=== PATIENT | female | born 2000 | race Hispanic/Latino ===

== ENCOUNTER 2024-10-16 14:47 | Emergency (ER) | payer OTHER ==
[~2024-10-16] VITALS: Ht 162.6 cm; Wt 80.1 kg
[2024-10-16 15:17] LABS: BASOPHILS # (AUTO) 0.02 K/uL (0.00-0.20); BASOPHILS % (AUTO) 0.2 % (0.0-5.0); EOSINOPHILS # (AUTO) 0.07 K/uL (0.00-0.70); EOSINOPHILS % (AUTO) 0.5 % (0.0-8.0); HEMATOCRIT 27.4 % (36-48); IMMATURE GRANULOCYTE ABSOLUTE 0.17 K/uL (0-1); MEAN CORPUSCULAR HEMOGLOBIN 29.9 pg (27.0-33.0); MEAN CORPUSCULAR HGB CONC 33.6 g/dL (32.0-36.0); MONOCYTES # (AUTO) 0.4 K/uL (0.1-1.0); MONOCYTES % (AUTO) 2.9 % (3.0-13.0); NEUTROPHILS # (AUTO) 10.5 K/uL (1.8-7.7); NEUTROPHILS % (AUTO) 80.1 % (40.0-77.0); PLATELET COUNT (AUTO) 359 K/uL (130-400); RED BLOOD CELL COUNT(AUTO) 3.08 MIL/uL (4.00-5.50); RED CELL DISTRIBUTION WIDTH 13.1 % (11.0-15.5); WHITE BLOOD COUNT (AUTO) 13.1 K/uL (4.8-10.8)
--- NOTE | 2024-10-16 15:23 | ERN ---
ED Note History of Present Illness Stated Complaint: [id number] Chief Complaint: Hypertension Time Seen by MD: 14:50 Dictation: 23-year-old female 1, 0, 0. She is 21 weeks . Patient came to the ER due to headache, leg swelling, elevated blood pressure, patient said that she started noticing today that her leg was swollen while she was doing grocery, she went to [facility] pharmacy and checked her blood pressure in the systolic was in the 140s. She also has been noticing headaches throughout the day. She has been followed by [facility] for her . Allergies: Coded Allergies: No Known Drug Allergies (Unverified Allergy, Unknown, 10/16/24) Home Meds Active Scripts Cephalexin Monohydrate (Keflex) 500 Mg Cap, 1 CAP PO TID for 5 Days, #15 CAP 0 Refills Prov:KHUSHBOO GRAFF MD 10/16/24 Past Medical History Past Medical History: No Pertinent History Surgical History: None : 1 Para: 0 Aborts: 0 Review of System Dictation NEGATIVE EXCEPT PER HPI Constitutional: Negative for fever,chills, and weight loss Eyes: Negative for injury, pain,redness, and discharge ENT: Negative for injury,pain or swelling Cardiovascular: denies chest pain, palpitations, she reports bilateral lower extremity edema Respiratory: Negative for shortness of breath, cough, and wheezing, Abdomen/GI: Negative for abdominal pain, nausea, vomiting, diarrhea, and constipation Back: Negative for injury and pain : Negative for injury, bleeding and discharge MS/Extremity: Negative for injury and deformity Skin: Negative for rash, and discoloration Neuro: Headache. Psych: Negative for suicide ideation, homicidal ideation, and hallucinations Initial Vital Sign VS Vital Signs Date Time Temp Pulse Resp B/P (MAP) Pulse Ox O2 Delivery O2 Flow Rate FiO2 10/16/24 14:50 98.8 107 18 143/76 97 Room Air 0 10/16/24 14:54 21 Physical Exam Dictation General: awake, alert, NAD Head/Face: Normocephalic, atraumatic Eyes: PERRL, EOMI, vision at baseline ENT: oral cavity clear, TMs clear, no signs of infection Neck: Trachea midline, supple, no nuchal rigidity Cardiovascular: RRR, normal S1/S2, No MRGs, no JVD, bilateral lower extremity edema Respiratory: CTAB, no respiratory distress, No rales or wheezes Abdomen: Soft , no tender Skin: Warm, dry, normal turgor, no rash MS/Extremity: Pulses equal, no cyanosis, neurovascular intact, FROM Neuro: COAx4, GCS 15, strength 5/5, CN 2-12 intact, normal cerebellar exam, normal gait, Psych: Normal behavior, mood, and affect normal Results (Laboratory/Radiology) Laboratory/Radiology Laboratory Tests Test 10/16/24 15:04 10/16/24 16:01 White Blood Count 13.1 K/uL (4.8-10.8) H Red Blood Count 3.08 MIL/uL (4.00-5.50) L Hemoglobin 9.2 g/dL (12.0-16.0) L Hematocrit 27.4 % (36-48) L Mean Corpuscular Volume 89.0 fL (79-99) Mean Corpuscular Hemoglobin 29.9 pg (27.0-33.0) Mean Corpuscular Hemoglobin Concent 33.6 g/dL (32.0-36.0) Red Cell Distribution Width 13.1 % (11.0-15.5) Platelet Count 359 K/uL (130-400) Mean Platelet Volume 9.1 fL (7.5-10.5) Immature Granulocyte % (Auto) 1.3 % (0-1) H Neutrophils (%) (Auto) 80.1 % (40.0-77.0) H Lymphocytes (%) (Auto) 15.0 % (21.0-51.0) L Monocytes (%) (Auto) 2.9 % (3.0-13.0) L Eosinophils (%) (Auto) 0.5 % (0.0-8.0) Basophils (%) (Auto) 0.2 % (0.0-5.0) Neutrophils # (Auto) 10.5 K/uL (1.8-7.7) H Lymphocytes # (Auto) 2.0 K/uL (1.0-4.8) Monocytes # (Auto) 0.4 K/uL (0.1-1.0) Eosinophils # (Auto) 0.07 K/uL (0.00-0.70) Basophils # (Auto) 0.02 K/uL (0.00-0.20) Absolute Immature Granulocyte (auto 0.17 K/uL (0-1) Nucleated Red Blood Cells 0.0 % (0.0-0.19) Prothrombin Time 10.3 SEC (9.6-11.6) Prothromb Time International Ratio <= 0.93 (0.85-1.15) Activated Partial Thromboplast Time 24.0 SEC (26.3-35.5) L Sodium Level 135 mmol/L (136-145) L Potassium Level 3.3 mmol/L (3.5-5.1) L Chloride Level 100 mmol/L (101-111) L Carbon Dioxide Level 24 mmol/L (21-32) Blood Urea Nitrogen 7 mg/dL (7-18) Creatinine 0.7 mg/dL (0.5-1.0) Glomerular Filtration Rate Calc 124 mL/min (>90) Random Glucose 129 mg/dL (70-105) H Total Calcium 9.0 mg/dL (8.5-10.1) Total Bilirubin 0.3 mg/dL (0.2-1.0) Direct Bilirubin 0.1 mg/dL (0.0-0.3) Aspartate Amino Transf (AST/SGOT) 17 U/L (10-37) Alanine Aminotransferase (ALT/SGPT) 30 U/L (12-78) Alkaline Phosphatase 75 U/L (50-136) Total Protein 7.2 g/dL (6.0-8.3) Albumin 2.8 g/dL (3.5-5.0) L Human Chorionic Gonadotropin, Quant 80996 mIU/mL (0-5) H Urine Color YELLOW (YELLOW) Urine Appearance CLEAR (CLEAR) Urine pH 6.5 (5.0-8.0) Urine Specific Irving 1.027 (1.001-1.031) Urine Protein 30 mg/dL (NEGATIVE) H Urine Glucose (UA) NEGATIVE mg/dL (NEGATIVE) Urine Ketones NEGATIVE mg/dL (NEGATIVE) Urine Occult Blood NEGATIVE (NEGATIVE) Urine Nitrate NEGATIVE (NEGATIVE) Urine Bilirubin NEGATIVE mg/dL (NEGATIVE) Urine Urobilinogen 0.2 mg/dL (0.2-1.0) Urine Leukocyte Esterase 25 Lisbeth/uL (NEGATIVE) H Urine RBC 2-5 /HPF (0-1) H Urine WBC 2-5 /HPF (0-1) H Urine Squamous Epithelial Cells FEW /HPF (0-2) Urine Bacteria RARE /HPF (None Seen) ED Course ED Course Orders Procedure Category Date Status Time Cbc With Differential LAB 10/16/24 Complete 15:10 Basic Metabolic Panel LAB 10/16/24 Complete 15:10 Hepatic Function Panel LAB 10/16/24 Complete 15:10 Pt And Ptt LAB 10/16/24 Complete 15:10 Type And Screen BBK 10/16/24 Complete 15:10 Hcg,Quantitative LAB 10/16/24 Complete 15:10 Urinalysis Profile LAB 10/16/24 Complete 15:10 Us Ob Carlene/Position US 10/16/24 Resulted 15:10 Potassium Bicarb/Cit PHA 10/16/24 Complete Ac 25meq (K-Lyte Ta 16:30 Ceftriaxone 1g Vial PHA 10/16/24 In Process (Rocephine 1g Inj) 17:00 Current Medications Medications (Trade) Dose Ordered Sig/Tracy Route PRN Reason Start Time Stop Time Status Last Admin Dose Admin Ceftriaxone Sodium (ROCEphine 1G INJ) 1 gm ONCE ONCE IVPB 10/16/24 17:00 10/16/24 17:01 10/16/24 16:40 Potassium Bicarbonate (K-Lyte Tablet Eff 25 Meq Tablet.eff) 50 meq ONCE ONCE PO 10/16/24 16:30 10/16/24 16:31 DC 10/16/24 16:40 Vital Signs Date Time Temp Pulse Resp B/P (MAP) Pulse Ox O2 Delivery O2 Flow Rate FiO2 10/16/24 16:12 98.2 109 20 138/74 98 Room Air* 0 21 10/16/24 14:54 98.8 107 18 143/76 97 Room Air* 0 21 10/16/24 14:50 98.8 107 18 143/76 97 Room Air 0 Medical Decision Making MDM 23-year-old female 1, 0, 0. She is 21 weeks . Patient came to the ER due to headache, leg swelling, elevated blood pressure, patient said that she started noticing today that her leg was swollen while she was doing grocery, she went to [facility] pharmacy and checked her blood pressure in the systolic was in the 140s. She also has been noticing headaches throughout the day. She has been followed by [facility] for her . Preeclampsia UTI Ordered laboratory workup , including urinalysis Ultrasound: FINDINGS: There is saucedo cephalic presentation intrauterine gestation with heart rate of 137 bpm. The placenta is grade I maturity anteriorly positioned. The amniotic fluid single deepest pocket measures 6.4 cm. IMPRESSION: Saucedo intrauterine gestation with positive motion and positive heart tones. UA positive for leukocyte esterase. Patient received 1 g ceftriaxone will be discharged on Keflex x5 days Blood pressure well controlled now without given antihypertensive. Was systolic 138/diastolic 74 Patient he will be discharged with recommendation to follow up with her primary care physician who was OBGYN in the next 24 hours DX & DISP Disposition: Discharge Departure Impression: Primary Impression: Hypertension Additional Impressions: Hypokalemia, UTI (urinary tract infection), Anemia Condition: Stable Scripts Cephalexin Monohydrate (Keflex) 500 Mg Cap 1 CAP PO TID for 5 Days, #15 CAP 0 Refills Prov: KHUSHBOO GRAFF MD 10/16/24 KHUSHBOO GRAFF MD Oct 16, 2024 15:23
[2024-10-16 15:28] LABS: INR <= 0.93 (0.85-1.15); PROTHROMBIN TIME 10.3 SEC (9.6-11.6)
[2024-10-16 15:30] LABS: CREATININE 0.7 mg/dL (0.5-1.0); POTASSIUM 3.3 mmol/L (3.5-5.1)
--- NOTE | 2024-10-16 15:55 | HMCIMG ---
US OB HEMALATHA/POSITION HISTORY: DECREASED MOVEMENT COMPARISON: None FINDINGS: There is saucedo cephalic presentation intrauterine gestation with heart rate of 137 bpm. The placenta is grade I maturity anteriorly positioned. The amniotic fluid single deepest pocket measures 6.4 cm. IMPRESSION: Saucedo intrauterine gestation with positive motion and positive heart tones.
[2024-10-16 15:56] LABS: ALBUMIN 2.8 g/dL (3.5-5.0); BILIRUBIN,DIRECT 0.1 mg/dL (0.0-0.3); BILIRUBIN,TOTAL 0.3 mg/dL (0.2-1.0); TOTAL PROTEIN, SERUM 7.2 g/dL (6.0-8.3)
[2024-10-16 16:09] LABS: ADD UA MICROSCOPIC YES; APPEARANCE,URINE CLEAR (CLEAR); BILIRUBIN,URINE NEGATIVE (NEGATIVE); COLOR,URINE YELLOW (YELLOW); GLUCOSE, URINE (UA) NEGATIVE (NEGATIVE); KETONES,URINE NEGATIVE (NEGATIVE); LEUKOCYTE ESTERASE ,URINE 25 Leu/uL (NEGATIVE); NITRATE,URINE NEGATIVE (NEGATIVE); OCCULT BLOOD,URINE NEGATIVE (NEGATIVE); PH,URINE 6.5 (5.0-8.0); PROTEIN,URINE 30 mg/dL (NEGATIVE); UROBILINOGEN,URINE 0.2 mg/dL (0.2-1.0)
[2024-10-16 16:15] LABS: BACTERIA,URINE RARE /HPF (None Seen); MUCUS,URINE FEW LPF (None Seen); SQUAMOUS EPITHELIAL CELL,UR FEW /HPF (0-2)
[2024-10-16] MEDS ORDERED: CEPH500B PO (16:31)
[2024-10-16] MEDS: cefTRIAXone 1G VIAL IVPB ONE (16:40)
[2024-10-16] MEDS: PoTASSium BIcarbonate/CIT AC 25 MEQ TABLET.EFF PO ONE (16:40)
[2024-10-16 17:00] VITALS: BP 119/58; PULSE 90; RESP 20; TEMP 98.3; O2SAT 97
== END 2024-10-16 17:51 | disposition home or self-care (01) ==
LOC: EDH 14:47
DX: O10.912 Unspecified pre-existing hypertension complicating pregnancy, second trimester (principal); O26.892 Other specified pregnancy related conditions, second trimester; E87.6 Hypokalemia; R10.2 Pelvic and perineal pain; D64.9 Anemia, unspecified; O23.42 Unspecified infection of urinary tract in pregnancy, second trimester; N39.0 Urinary tract infection, site not specified; Z3A.21 21 weeks gestation of pregnancy
CPT/HCPCS: 99285; 96365; 80076; 80048; 84702; 85025; 85610; 85730; 86850; 86900; 86901; 81001; 36415; 76815; J0696